=== PATIENT | female | born 1975 | race Caucasian/White ===

== ENCOUNTER 2019-12-30 13:23 | Emergency (ER) | payer BC, SELFPAY ==
--- NOTE | ~2019-12-30 | CT_ITS ---
EXAMINATION: CT abdomen pelvis w con EXAM DATE: 12/30/2019 16:14 INDICATION: Left upper quadrant pain since Saturday, nausea and vomiting. TECHNIQUE: Spiral CT of the abdomen and pelvis was performed following intravenous injection of 100 m L Omnipaque 350. Axial, coronal and sagittal images were reviewed. The dose-length product (DLP) fo r this examination was 478.65 mGy-cm. The exposure was tailored according to patient size (auto mA e xposure control), and iterative reconstruction (ASIR) was used as additional dose reduction technique . Comparison is made to prior examination from 03/03/2019. FINDINGS: There is 1.2 cm splenic hypodensity, benign finding. The liver, adrenal glands and pancrea s are unremarkable. There are cholecystectomy clips. Portal and splenic veins are patent. Kidneys enhance symmetrically. There is no hydronephrosis. The uterus and ovaries are unremarkable, no adn exal mass. The bladder is unremarkable. There is no retroperitoneal or pelvic lymphadenopathy. Sm all umbilical fat-containing hernia. The appendix is normal. The stomach and small bowel are unremarkable. There is expected amount of c olonic stool. No free intraperitoneal gas. The heart is normal in size. There are no pericardial or pleural effusions. The lung bases are unremarkable. The bones are unremarkable. IMPRESSION: 1. No acute intra-abdominal findings. Reviewed, dictated and finalized at location A.
[2019-12-30 13:31] VITALS: BP 137/74; PULSE 84; RESP 16; TEMP 36.6; O2SAT 100
--- NOTE | 2019-12-30 13:32 | ED.ABDPAIN ---
HPI - Abdominal Pain General Chief Complaint: Abdominal Pain Stated Complaint: abdominal pain, llq Time Seen by Provider: 12/30/19 13:32 Source: patient and family Mode of arrival: ambulatory Limitations: no limitations History of Present Illness HPI narrative: Patient is a 44-year-old male who presents to emergency department for evaluation of upper respiratory symptoms that began Saturday with an aching pain in the left side of the abdomen in the upper quadrant that was intermittent and has become more severe in nature today with emesis. Patient notes that she has also had very few bowel movements denies diarrhea rectal bleeding or melena. Patient does note history of constipation. Patient denies radiation of pain Related Data Allergies Allergy/AdvReac Type Severity Reaction Status Date / Time erythromycin base Allergy Unknown Unknown Verified 12/30/19 13:36 Sulfa (Sulfonamide Allergy Unknown Verified 12/30/19 13:36 Antibiotics) Review of Systems Review of Systems: All systems reviewed & are unremarkable except as noted in HPI and below PMFSH Past Medical History Medical History (Updated 12/30/19 @ 16:46 by Nj Guzman PA-C) Cholecystectomy planned Family History Family History (Updated 02/09/11 @ 13:22 by DOCTOR UNKNOWN) Other Cerebrovascular accident Family history of cardiovascular disease Hypertension Social History Social History Alcohol intake: never Gender identity (if verbalized by the patient): Female Exam Narrative: Exam Narrative: GENERAL: Well-appearing, well-nourished, and in no acute distress. HEAD: Normocephalic, atraumatic. EYES: PERRLA and EOMI. ENT: Nares clear, no rhinorrhea or epistaxis. Mucous membranes moist. CHEST: Clear to auscultation. No respiratory distress. No wheezes rales or rhonchi HEART: Regular rate and rhythm. No murmur heard. Normal peripheral pulses. ABDOMEN: Soft, left upper quadrant tenderness with voluntary guarding, nondistended EXTREMITIES: Normal range of motion. No edema. SKIN: Warm, dry, no rash. NEURO: No focal deficits. Alert and oriented x3. PSYCH: Normal mood and affect. Course Course Emergency Course: Patient in the room in no distress aware of case findings treatment plan and diagnosis agreeing to follow-up as directed or to return if symptoms worsen or concerns Vital Signs Vital signs: Vital Signs Temperature 98 F 04/01/20 13:31 Pulse Rate 84 12/30/19 13:31 Respiratory Rate 16 12/30/19 13:31 Blood Pressure 137/74 12/30/19 13:31 Pulse Oximetry 100 12/30/19 13:31 Temperature 98 F 12/30/19 13:31 Pulse Rate 84 12/30/19 13:31 Respiratory Rate 16 12/30/19 13:31 Blood Pressure 137/74 12/30/19 13:31 Pulse Oximetry 100 12/30/19 13:31 MDM - Abdominal Pain MDM Narrative Medical decision making narrative: Patient with abdominal pain of unknown etiology in the room in no distress afebrile nontoxic-appearing no distress felt appropriate for outpatient reevaluation Lab Data Result diagrams: 12/30/19 13:44 12/30/19 13:44 Labs: Lab Results 12/30/19 12/30/19 12/30/19 Range/Units 13:40 13:44 13:44 WBC 9.1 (4.5-10.0) K/mm3 RBC 5.00 (4.2-5.4) M/mm3 Hgb 15.1 H (12.0-15.0) g/dL Hct 45.8 (37.0-47.0) % MCV 91.6 (80-100) fl MCH 30.2 (26-34) pg MCHC 33.0 (32-36) g/dl RDW 11.8 (11.5-14.5) % Plt Count 333 (150-375) k/mm3 MPV 11.0 H (7.4-10.4) fl Immature Gran % (Auto) 0.1 (0-0.5) % Neut % (Auto) 46.0 (45.5-73.1) % Lymph % (Auto) 32.5 (18.3-44.2) % Glades % (Auto) 4.5 (2.6-8.5) % Eos % (Auto) 16.1 H (0-4.4) % Baso % (Auto) 0.8 (0.2-1.2) % Lymph # (Auto) 2.94 (0.9-3.2) K/mm3 Glades # (Auto) 0.4 (0.1-0.6) K/mm3 Eos # (Auto) 1.5 H (0-0.3) K/mm3 Baso # (Auto) 0.1 (0.0-0.1) K/mm3 Abs Immat Gran (auto) 0.01 (0.00-0.031) K/mm3
[2019-12-30 13:49] LABS: Basophils Absolute Auto 0.1 K/mm3 (0.0-0.1); Basophils Percent Auto 0.8 % (0.2-1.2); Eosinophils Absolute Auto 1.5 K/mm3 (0-0.3); Eosinophils Percent Auto 16.1 % (0-4.4); Hematocrit 45.8 % (37.0-47.0); Hemoglobin 15.1 g/dL (12.0-15.0); Immature Granulocyte Absolute 0.01 K/mm3 (0.00-0.031); Immature Granulocyte Percent A 0.1 % (0-0.5); Lymphocytes Absolute Auto 2.94 K/mm3 (0.9-3.2); Lymphocytes Percent Auto 32.5 % (18.3-44.2); Mean Corpuscular Hemoglobin 30.2 pg (26-34); Mean Corpuscular Volume 91.6 fl (80-100); Monocytes Absolute Auto 0.4 K/mm3 (0.1-0.6); Monocytes Percent Auto 4.5 % (2.6-8.5); Neutrophils Absolute Auto 4.2 K/mm3 (1.3-6.7); Platelet Count Result 333 k/mm3 (150-375); Red Cell Distribution Width 11.8 % (11.5-14.5); White Blood Count 9.1 K/mm3 (4.5-10.0)
[2019-12-30 13:51] LABS: Add Urine Microscopic? NO; Appearance Urine Clear (Clear); Bilirubin Urine Negative (Negative); Blood Urine Negative (Negative); Color Urine Straw (Yellow); Glucose Urine UA Negative (Negative); Ketones Urine Negative (Negative); Leukocyte Esterase Ur Negative LEU/UL (Negative); Nitrate Urine Negative (Negative); Protein Urine Negative (Negative); Specific Grav Ur 1.014 (1.001-1.035); Urobilinogen Urine Negative mg/dL (<2.0)
[2019-12-30 14:00] LABS: Alanine Aminotransferase 15 U/L (4-35); Albumin Level 4.8 g/dL (3.5-5.1); Alkaline Phosphatase 61 U/L (38-126); Aspartate Amino Transferase 25 U/L (14-36); Bilirubin,Total 0.2 mg/dL (0.2-1.3); Blood Urea Nitrogen 15 mg/dL (7-17); Calcium 9.5 mg/dL (8.4-10.2); Carbon Dioxide 28 mmol/L (22-30); Chloride 103 mmol/L (98-107); Estimated CRCL calculation 70 ml/min; Estimated Glomerular Filt Rate > 60; Glucose 86 mg/dL (65-105); Lipase 104 U/L (23-300); Potassium 3.6 mmol/L (3.4-5.0); Sodium 138 mmol/L (137-145)
[2019-12-30] MEDS: ONDANSETRON INJ 4 MG/2 ML VIAL IV PUSH (14:20)
[2019-12-30] MEDS: FAMOTIDINE 20 MG/2 ML VIAL IV PUSH (14:20)
[2019-12-30] MEDS: SODIUM CHLORIDE 0.9% IV 1,000 ML 999 ML IV CONT (14:20)
[2019-12-30 15:10] VITALS: BP 142/74; PULSE 8; RESP 16; O2SAT 97
== END 2019-12-30 17:41 | disposition home or self-care (01) ==
PROVIDERS: Emergency Provider Emergency Medicine; PCP Physician Assistant
DX: R10.12 Left upper quadrant pain (principal)
CPT/HCPCS: 36415; 74177; 80053; 81003; 81025; 83690; 85025; 96365; 96375; 99284; J0131; J2405; J7030; Q9967

== ENCOUNTER 2020-12-13 14:03 | Outpatient (CLI) | payer BC, SELFPAY | END 2020-12-13 14:04 | disposition home or self-care (01) | LOC: ANHCOVIDVC 14:04 | PROVIDERS: PCP Physician Assistant | DX: Z23 Encounter for immunization (principal) | CPT/HCPCS: 0001A; 91300 ==

== ENCOUNTER 2021-01-03 13:58 | Outpatient (CLI) | payer BC, SELFPAY | END 2021-01-03 13:59 | disposition home or self-care (01) | LOC: ANHCOVIDVC 13:58 | PROVIDERS: PCP Physician Assistant | DX: Z23 Encounter for immunization (principal) | CPT/HCPCS: 0002A; 91300 ==

== ENCOUNTER 2021-08-14 21:03 | Emergency (ER) | payer BC, SELFPAY ==
--- NOTE | ~2021-08-14 | CT_ITS ---
EXAMINATION: CT abdomen pelvis wo con DATE: 08/14/2021 23:22 INDICATION: Right flank pain TECHNIQUE: Computed tomography (CT) of the abdomen and pelvis was performed without intravenous contr ast. Automated exposure control and iterative reconstruction technique were employed. The dose-length product was 458.39 mGy-cm. COMPARISON: 12/30/2019 FINDINGS: Lung bases are clear. Heart size is normal. No pericardial or pleural effusion. Cholecystectomy clips at the gallbladder fossa. Unchanged 1.2 cm low-attenuation splenic lesion most likely cyst or jessica ioma. Liver, pancreas, bilateral adrenal glands and kidneys are normal. No urolithiasis or hydronephr osis. Bowels including a retrocecal appendix are normal. Bladder and anteverted uterus and right adne xa are unremarkable. 3.8 cm left adnexal cyst. No free intraperitoneal gas or fluid. No pathologicall y enlarged abdominal or pelvic lymphadenopathy. Mild lumbar spondylosis. IMPRESSION: 1. Normal appendix. No urolithiasis or other acute intraabdominal/pelvic process. 2. 3.8 cm left adnexal cyst. Reviewed, dictated and finalized at location A. R DETAILER IMPRESSION: 1. Normal appendix. No urolithiasis or other acute intraabdominal/pelvic proces s. 2. 3.8 cm left adnexal cyst.
[2021-08-14 21:05] VITALS: BP 150/95; PULSE 68; RESP 16; TEMP 36.7; O2SAT 100
[2021-08-14 21:56] LABS: Add Urine Microscopic? YES; Appearance Urine Clear (Clear); Bilirubin Urine Negative (Negative); Blood Urine 3+ (Negative); Color Urine Straw (Yellow); Glucose Urine UA Negative (Negative); Ketones Urine Negative (Negative); Leukocyte Esterase Ur Negative LEU/UL (Negative); Mucus Urine Rare /lpf; Nitrate Urine Negative (Negative); Protein Urine Negative (Negative); Specific Grav Ur 1.005 (1.001-1.035); Squamous Epithelial Cell Urine Occasional /hpf (Few); Urobilinogen Urine Negative mg/dL (<2.0); WBC Urine 0-3 /hpf
--- NOTE | 2021-08-14 23:30 | ED.GENADULT ---
HPI - General Adult General Chief complaint: Abdominal Pain Stated complaint: R. side flank pain Time Seen by Provider: 08/14/21 23:09 Source: patient and RN notes reviewed History of Present Illness HPI narrative: Patient is a 46 y/o female complaining of right back pain starting 2 days ago. She describes her pain as sharp and aching. She rates her pain as 6/10 currently. She took Tylenol, which did not seem to help. She also has some dysuria. Related Data Home Medications Medication Instructions Recorded Confirmed levothyroxine [Synthroid] 75 mcg PO DAILY 08/03/21 08/03/21 montelukast 10 mg PO DAILY 08/03/21 08/03/21 Allergies Allergy/AdvReac Type Severity Reaction Status Date / Time erythromycin base Allergy Unknown Vomiting Verified 08/14/21 23:19 Sulfa (Sulfonamide Allergy Hives Verified 08/14/21 23:19 Antibiotics) Review of Systems Constitutional: Constitutional: Denies chills, Denies fever(s), Denies headache(s) and Denies weakness Eyes: Eyes: Denies blurry vision ENT: Denies headache(s) and Denies neck pain Cardiovascular: Cardiovascular: Denies chest pain and Denies dyspnea Respiratory: Respiratory: Denies cough and Denies dyspnea Gastrointestinal: Gastrointestinal: Denies abdominal pain, Denies diarrhea, Denies nausea and Denies vomiting Genitourinary: Genitourinary: Denies hematuria and Reports dysuria Musculoskeletal: Musculoskeletal: Reports back pain and Denies neck pain Neurologic: Denies headache(s) and Denies weakness [facility] Past Medical History Medical History (Updated 08/15/21 @ 01:30 by Daya Moore MD) Cholecystectomy planned Family History Family History (Updated 02/09/11 @ 13:22 by DOCTOR UNKNOWN) Other Cerebrovascular accident Family history of cardiovascular disease Hypertension Social History Social History Smoking status: Never smoker Alcohol intake: never Gender identity (if verbalized by the patient): Female Spiritual care concerns: No Exam Const: General: no acute distress and well developed Orientation/consciousness: oriented to person, oriented to place, oriented to time and patient oriented x3 HENMT: Head: normocephalic Ears: external ears normal General nose exam: Normal external nose present Eyes: General: appearance normal, both eyes and all related structures Conjunctivae: conjunctivae normal Neck: Neck: normal visual inspection and full ROM Chest: Chest palpation & inspection: normal inspection of the chest and no tenderness Resp: Effort & Inspection: normal respiratory effort Auscultation: clear to auscultation bilaterally Cardio: Rate: regular rate Rhythm: regular rhythm GI: GI Palp: No abdominal tenderness and Yes Soft to palpation Skin: General skin exam: normal color and turgor normal Neuro: General: oriented to person, oriented to place, oriented to time and patient oriented x3 Cognition (Neuro): normal cognition Extrem: General: normal to inspection, full ROM and no pedal edema Psych: Appearance: grossly normal Mental Status: mental status grossly normal Affect: normal affect Course Vital Signs Vital signs: Vital Signs Temperature 36.7 C 08/14/21 21:05 Pulse Rate 68 08/14/21 21:05 Respiratory Rate 16 08/14/21 21:05 Blood Pressure 150/95 H 08/14/21 21:05 Pulse Oximetry 100 08/14/21 21:05 Temperature 36.7 C 08/14/21 21:05 Pulse Rate 68 08/15/21 01:41 Respiratory Rate 18 08/15/21 01:41 Blood Pressure 104/77 08/15/21 01:41 Pulse Oximetry 100 08/15/21 01:41 Medical Decision Making Vital Signs Vital Signs: Vital Signs Temperature 36.7 C 08/14/21 21:05 Pulse Rate 68 08/14/21 21:05 Respiratory Rate 16 08/14/21 21:05 Blood Pressure 150/95 H 08/14/21 21:05 Pulse Oximetry 100 08/14/21 21:05 Temperature 36.7 C 08/14/21 21:05 Pulse Rate 68 08/15/21 01:41 Respiratory Rate 18 07/31
[2021-08-14 23:46] VITALS: BP 164/98; PULSE 80; RESP 18; O2SAT 100
[2021-08-14 23:52] LABS: Basophils Absolute Auto 0.1 K/mm3 (0.0-0.1); Basophils Percent Auto 0.6 % (0.2-1.2); Eosinophils Absolute Auto 0.2 K/mm3 (0-0.3); Eosinophils Percent Auto 1.5 % (0-4.4); Hematocrit 43.5 % (37.0-47.0); Hemoglobin 14.9 g/dL (12.0-15.0); Immature Granulocyte Absolute 0.03 K/mm3 (0.00-0.031); Immature Granulocyte Percent A 0.3 % (0-0.5); Lymphocytes Absolute Auto 3.94 K/mm3 (0.9-3.2); Mean Corpuscular HGB Conc 34.3 g/dl (32-36); Mean Corpuscular Hemoglobin 31.4 pg (26-34); Mean Corpuscular Volume 91.6 fl (80-100); Mean Platelet Volume 10.6 fl (7.4-10.4); Monocytes Absolute Auto 0.7 K/mm3 (0.1-0.6); Monocytes Percent Auto 6.7 % (2.6-8.5); Neutrophils Percent Auto 50.9 % (45.5-73.1); Platelet Count Result 299 k/mm3 (150-375); Red Blood Count 4.75 M/mm3 (4.2-5.4); Red Cell Distribution Width 12.1 % (11.5-14.5); White Blood Count 9.8 K/mm3 (4.5-10.0)
[2021-08-15 00:09] LABS: Alanine Aminotransferase 15 U/L (4-35); Albumin Level 4.7 g/dL (3.5-5.1); Alkaline Phosphatase 60 U/L (38-126); Anion Gap 11 mmol/L (8-16); Aspartate Amino Transferase 23 U/L (14-36); Bilirubin,Total 0.2 mg/dL (0.2-1.3); Blood Urea Nitrogen 11 mg/dL (7-17); Calcium 10.1 mg/dL (8.4-10.2); Carbon Dioxide 30 mmol/L (22-30); Chloride 102 mmol/L (98-107); Estimated Glomerular Filt Rate > 60; Glucose 98 mg/dL (65-110); Potassium 3.9 mmol/L (3.4-5.0); Sodium 143 mmol/L (137-145)
[2021-08-15 01:41] VITALS: BP 104/77; PULSE 68; RESP 18; O2SAT 100
== END 2021-08-15 01:42 | disposition home or self-care (01) ==
PROVIDERS: Emergency Medicine; Emergency Provider Emergency Medicine; PCP Physician Assistant
DX: R10.9 Unspecified abdominal pain (principal)
CPT/HCPCS: 36415; 74176; 80053; 81001; 81025; 85025; 99284

== ENCOUNTER 2021-08-18 00:50 | Day surgery (SDC) | payer BC, SELFPAY ==
[2021-08-03 13:14] VITALS: BMI 30.3
[2021-08-18 11:28] VITALS: BP 126/84; PULSE 84; RESP 16; TEMP 36.9; O2SAT 100
[2021-08-18] MEDS: LACTATED RINGERS 1,000 ML 150 ML IV CONT (11:36)
--- NOTE | 2021-08-18 11:37 | WPDGICN ---
Assessment and Plan Assessment and plan (1) Encounter for screening colonoscopy: Code(s): Z12.11 - Encounter for screening for malignant neoplasm of colon Status: Acute Assessment and Plan: Patient presents for screening colonoscopy. Appears to be at average risk for colon polyps. GI Consult Note Consult date/time: 08/18/21 11:37 HPI: Berkley Wilkinson is a 46 year old female Presents for screening colonoscopy. Patient reports that her current weight appetite bowel movements are normal. Patient denies abdominal pain. She has had no bleeding. Family history is noncontributory. Review of Systems Review of Systems: All systems reviewed & are unremarkable except as noted in HPI and below PMFSH Past Medical History Medical History (Updated 08/18/21 @ 11:38 by Olivier Haq MD) Cholecystectomy planned Family History Family History (Updated 02/09/11 @ 13:22 by DOCTOR UNKNOWN) Other Cerebrovascular accident Family history of cardiovascular disease Hypertension Social History Social History Smoking status: Never smoker Alcohol intake: never Living arrangements: with family Gender identity (if verbalized by the patient): Female Spiritual care concerns: No Meds Home Medications and Allergies Home Medications Medication Instructions Recorded Confirmed Type levothyroxine [Synthroid] 75 mcg PO DAILY 08/03/21 08/18/21 History montelukast 10 mg PO DAILY 08/03/21 08/18/21 History Allergies Allergy/AdvReac Type Severity Reaction Status Date / Time erythromycin base Allergy Unknown Vomiting Verified 08/18/21 11:26 Sulfa (Sulfonamide Allergy Hives Verified 08/18/21 11:26 Antibiotics) Vital Signs Vital Signs - 24 hr 08/18/21 11:28 Temperature 98.5 F Pulse Rate 84 Respiratory Rate 16 Blood Pressure 126/84 Pulse Oximetry 100 Exam Narrative: Physical exam reveals patient be alert. Vital signs stable. HEENT exam is unremarkable. Patient is anicteric. Lungs are clear to auscultation and percussion. Heart is without murmur or extra sounds. Abdominal exam bowel sounds are present soft nontender with no organomegaly. Digital external rectal exam is normal.
--- NOTE | 2021-08-18 12:15 | P.PNAN_ITS ---
Anes - Initial Pre Proc Eval Procedure: Operation Date: 08/18/21 12:30 Proposed Procedures p Screening Colonoscopy - Olivier Haq MD Date/Time: 08/18/21 12:15 Surgeon: Olivier Haq MD Pre Op Diagnosis: neoplasm screening Patient Data Age: 46 Gender: F Height: 1.52 m Weight: 73.5 kg Last Vital Signs Temp 98.5 F 08/18/21 11:28 Pulse 84 08/18/21 11:28 Resp 16 08/18/21 11:28 BP 126/84 08/18/21 11:28 Pulse Ox 100 08/18/21 11:28 Allergies Allergy/AdvReac Type Severity Reaction Status Date / Time erythromycin base Allergy Unknown Vomiting Verified 08/18/21 11:26 Sulfa (Sulfonamide Allergy Hives Verified 08/18/21 11:26 Antibiotics) Home Medications Medication Instructions Recorded Confirmed Type levothyroxine [Synthroid] 75 mcg PO DAILY 08/03/21 08/18/21 History montelukast 10 mg PO DAILY 08/03/21 08/18/21 History Patient hx anesthesia problems: none Family hx anesthesia problems: none Results Review: All pre-operative results and documents have been reviewed as part of the pre-operative evaluation. [facility] Past Medical History Medical History (Updated 08/18/21 @ 12:13 by Kristopher Bethea MD) Cholecystectomy planned Hypothyroid Family History Family History (Updated 02/09/11 @ 13:22 by DOCTOR UNKNOWN) Other Cerebrovascular accident Family history of cardiovascular disease Hypertension Social History Social History Smoking status: Never smoker Alcohol intake: never Living arrangements: with family Gender identity (if verbalized by the patient): Female Spiritual care concerns: No Anes - Eval Final PreProcedure Day of Procedure 08/18/21 12:15 Patient weight: overweight Heart: regular rate and rhythm Lungs: clear to auscultation Airway: Mallampati scale class II Neurological: alert and oriented Last oral intake: >/= 8 hours ASA classification: II Emergent: no Anesthetic plan: proceed Anesthesia type and monitoring: general GIVS and standard monitoring Results Review: All pre-operative results and documents have been reviewed as part of the pre-operative evaluation. Informed Consent: The patient's anesthetic plan and its attendant risks and benefits were discussed with the patient/family/POA. Questions were solicited and answers provided to the satisfaction of the patient/family/POA.
[2021-08-18 13:03] VITALS: BP 105/62; PULSE 85; RESP 21; O2SAT 99
[2021-08-18 13:13] VITALS: BP 119/70; PULSE 70; RESP 19; O2SAT 100
[2021-08-18 13:23] VITALS: BP 119/69; PULSE 61; RESP 19; O2SAT 100
== END 2021-08-18 13:38 | disposition home or self-care (01) ==
PROVIDERS: PCP Physician Assistant; Visit Provider Internal Medicine Gastroenterology
PROC: 0DJD8ZZ Inspection of Lower Intestinal Tract, Via Natural or Artificial Opening Endoscopic (ICD-10-PCS; CPT 45378; principal; 2021-08-18 12:30)
DX: Z12.11 Encounter for screening for malignant neoplasm of colon (principal); E03.9 Hypothyroidism, unspecified
CPT/HCPCS: 45378; J2704; J7120

== ENCOUNTER → 2021-09-08 03:59 | Outpatient (CLI) | payer BC, SELFPAY ==
[2021-09-08 19:26] LABS: SARS-CoV-2 RNA PCR Negative
== END ==
PROVIDERS: PCP Physician Assistant; Visit Provider Physician Assistant
DX: R09.81 Nasal congestion (principal); Z20.822 Contact with and (suspected) exposure to COVID-19
CPT/HCPCS: C9803; U0003; U0005

== ENCOUNTER → 2023-04-18 08:01 | Outpatient (CLI) | payer BC, SELFPAY ==
--- NOTE | ~2023-04-18 | US_ITS ---
Pelvic ultrasound. Clinical History: Abnormal uterine bleeding Technique: Realtime transabdominal and transvaginal scanning of the pelvis was performed. Color flow Doppler and Doppler spectral analysis were performed. Findings: The uterus is anteverted. The endometrial stripe has a thickness of 9 mm. Questional ill-d efined uterine fibroid measuring 2.1 cm. The right ovary measures 1.7 x 1.9 x 1.8 cm. Small right ovarian cyst measures 1.4 cm in diameter. The left ovary measures 2.9 x 1.9 x 2.1 cm. Left ovarian cyst measures 1.8 cm in diameter. There is no evidence of free fluid in the cul de sac. Impression: Endometrial stripe is 9 mm. If the patient is postmenopausal, this would be abnormally thickened, and further workup for endometrial hyperplasia or endometrial neoplasm would be advised. If the patient is premenopausal, then this would presumably be within normal limits. Small bilateral ovarian cysts, as above, of doubtful clinical significance. Reviewed, dictated and finalized at location M. Impression: Endometrial stripe is 9 mm. If the patient is postmenopausal, this would be abn ormally thickened, and further workup for endometrial hyperplasia or endometria l neoplasm would be advised. If the patient is premenopausal, then this would p resumably be within normal limits. Small bilateral ovarian cysts, as above, of doubtful clinical significance.
== END ==
PROVIDERS: PCP Physician Assistant; Visit Provider Obstetrics & Gynecology Gynecology
DX: N93.8 Other specified abnormal uterine and vaginal bleeding (principal); N83.292 Other ovarian cyst, left side; N83.291 Other ovarian cyst, right side; R93.89 Abnormal findings on diagnostic imaging of other specified body structures
CPT/HCPCS: 76830